=== PATIENT | female | born 1945 | race Caucasian/White ===

== ENCOUNTER → 2016-09-03 | Outpatient (CLI) | payer OTHER ==
--- NOTE | 2016-09-03 10:53 | DX ---
Chest, Two Views September 03, 2016 1017 hours History: Hyponatremia. Comparison: December 2012. Findings: Cardiac silhouette is within normal range. No pneumonia, congestive heart failure, pleura l effusion, or pneumothorax. Large retrocardiac hiatal hernia with air-fluid level with the hernia me asuring at least 12 cm. Atherosclerotic thoracic aorta. Impression: 1. Large hiatal hernia. 2. No acute pneumonia.
== END ==
LOC: CIMAGING 10:06
PROVIDERS: ATTEND Internal Medicine Nephrology
DX: E87.1 Hypo-osmolality and hyponatremia (principal); K44.9 Diaphragmatic hernia without obstruction or gangrene
CPT/HCPCS: 71020-PO

== ENCOUNTER → 2016-09-11 | Outpatient (CLI) | payer OTHER ==
--- NOTE | 2016-09-11 18:26 | DX ---
Cervical Spine, Two Views History: Preoperative cervical fusion evaluation, cervical spinal stenosis Comparison: CT myelogram July 24, 2016 Findings: Alignment is stable and straight with slight retrolisthesis at C4-5 , slight spondylolisthe sis at C6-C7 and mild spondylolisthesis at C7-T1 . Severe disc space narrowing between C4 and C7 is s table. Ventral and dorsal osteophytes remain at the narrowed levels. There are no compression abnorma lities. There is no prevertebral soft tissue swelling. There is right carotid bifurcation vascular ca lcification. There is degenerative facet disease on the left between C3 and C6. Impression: Stable multilevel spondylosis x 2 months.
== END ==
LOC: EDSTATUS 09:55 → FIMAGING 09:55
PROVIDERS: ATTEND Orthopaedic Surgery Orthopaedic Surgery of the Spine
DX: Z01.818 Encounter for other preprocedural examination (principal); M43.02 Spondylolysis, cervical region

== ENCOUNTER 2016-09-18 05:38 | Observation (INO) | payer OTHER ==
--- NOTE | 2016-09-17 21:56 | GHP ---
[f rep st] PREOP HISTORY AND PHYSICAL DATE OF ADMISSION: 09/18/2016 HISTORY: The patient is a pleasant 71-year-old, right-hand dominant woman referred to me for a 6-mon th history of sudden onset right shoulder and right upper extremity pain. The patient also has tingl ing and numbness down her right arm into the right index and long finger. Eighty percent of her symp toms are referable to the right upper extremity and 20% are referable to the neck pain. Symptoms are worse with ambulation and worse with use of her right upper extremity. On a 1-10 scale, her daily p ain as an 8. She denies any loss of bowel or bladder control. No loss of balance. Treatments have included physical therapy, home stretching exercise and antiinflammatories. SOCIAL HISTORY: The patient is retired. She is a past smoker but quit at the age of 27. She denies use of alcohol. FAMILY HISTORY: Diabetes mellitus, cancer and heart disease. PAST MEDICAL HISTORY: Type 2 diabetes mellitus, hypothyroidism, hypertension, and gastroesophageal r eflux disease. PAST SURGICAL HISTORY: Appendectomy, tonsillectomy, adenoidectomy, breast reduction surgery, catarac t surgery, right shoulder surgery, L3-4 laminectomy, L4-5 and L5-S1 fusion and a right stapedectomy. ALLERGIES: None. MEDICATIONS: Metformin, omeprazole, valsartan, levothyroxine and spironolactone. PHYSICAL EXAMINATION: VITAL SIGNS: Blood pressure is 118/74. CARDIAC: Regular rate and rhythm wit hout detectable murmur, rub or gallop. LUNGS: Clear to auscultation. ABDOMEN: Benign. NEUROLOGIC AL: Decreased cervical range of motion in left rotation and in extension. Strength in bilateral upp er extremities is 5/5 throughout with the exception of the right deltoid that is 4/5. Light touch is subjectively decreased in the left thumb, index and long finger. Biceps, brachia radialis, triceps reflexes are 1/4. Cervical spine is tender to palpation posteriorly at about 7. She is also tender along the medial inferior border of the right scapula. Spurling test is positive on the right. Fouzia carrillo test is positive on the left. Toes are downgoing on Babinski exam. Gait is normal. RADIOGRAPHIC STUDIES: CT myelogram of the cervical spine show severe qpgd-tf-rtlo degenerative disk disease C4-5, C5-6, C6-7. She has severe stenosis at C5-6 with spinal cord compression and severe st enosis at C6-7. IMPRESSION: 1. Cervical myelopathy. 2. Severe degenerative disk disease C4-7. 3. Severe stenosis C5-6 and C6-7 with spinal cord compression. 4. Right C5 radiculopathy with motor weakness. Due to the severity of the stenosis and cause of spinal cord compression with myelopathy, I have idalmis mmended surgery. This will be in the form of a C4-C7 anterior diskectomy, fusion with instrumentatio n. Potential risks, benefits, possible complications been thoroughly discussed including, but not li mited to, dural tear with CSF leak, meningitis, nerve root injury, partial or complete paralysis, inf ection, need for further surgery, Garo syndrome, dysphagia, aphonia, nonunion, and lack of improvem ent of symptomatology. She is also at risk of deep venous thrombosis, pulmonary embolism, pneumonia, stroke, heart attack, hemorrhage, blindness, and . The patient's questions have been answered thoroughly. She will be n.p.o. after midnight the night prior to surgery which is tonight. Copy requested to: [facility] /[id number]/MODL
[2016-09-18] MEDS ORDERED: ceFAZolin 2 GM/DEXTROSE 100 ML IV ONE (06:00)
[2016-09-18] MEDS ORDERED: THROMBIN (RECOMBINANT) 20,000 UNIT VIAL TP ONE (06:51)
[2016-09-18] MEDS ORDERED: BACITRACIN 50,000 UNITS/10 ML SYR IRR ONE (06:51)
[2016-09-18] MEDS ORDERED: AVITENE POWDER 1 GM JAR TP ONE (06:51)
[2016-09-18] MEDS ORDERED: fentaNYL 100 MCG/2 ML INJ ONE ×2 (07:04→11:59)
[2016-09-18] MEDS ORDERED: REMIFENTANIL HCL 1 MG VIAL ONE ×3 (07:04)
[2016-09-18] MEDS ORDERED: SUCCINYLCHOLINE CHLORIDE*ANESTHESIA ONLY*200 MG/10 ML SYR IVP ONE (07:05)
[2016-09-18] MEDS ORDERED: ROCURONIUM 50 MG/5 ML VIAL ONE (07:05)
[2016-09-18] MEDS ORDERED: PROPOFOL 200 MG/20 ML VIAL ONE (07:05)
[2016-09-18] MEDS ORDERED: PROPOFOL/EMULSION 500 MG/50 ML BOTTLE IV ONE ×2 (07:05→08:58)
[2016-09-18] MEDS ORDERED: diphenhydrAMINE 25 MG CAP PO PRN (07:31)
[2016-09-18] MEDS ORDERED: MAGNESIUM HYDROXIDE 30 ML UDCUP PO PRN (07:31)
[2016-09-18] MEDS ORDERED: OXYCODONE/APAP 5/325 TAB PO PRN (07:31)
[2016-09-18] MEDS ORDERED: PROCHLORPERAZINE MALEATE 10 MG TAB PO PRN (07:31)
[2016-09-18] MEDS ORDERED: ONDANSETRON DISINTEGRATING 4 MG TAB PO PRN (07:31)
[2016-09-18] MEDS ORDERED: HYDROmorphONE/DILAUDID 1 MG/ML SYR IVP PRN (07:31)
[2016-09-18] MEDS ORDERED: LACTULOSE 20 GM/30 ML UDCUP PO PRN (07:31)
[2016-09-18] MEDS ORDERED: POLYETHYLENE GLYCOL 3350 17 GM PKT PO PRN (07:31)
[2016-09-18] MEDS ORDERED: DIAZEPAM 10 MG/2 ML SYR IVP PRN (07:31)
[2016-09-18] MEDS ORDERED: BISACODYL 10 MG SUPP PR PRN (07:31)
[2016-09-18] MEDS ORDERED: HYDROCODONE/APAP 10/325 TAB PO PRN (07:31)
[2016-09-18] MEDS ORDERED: METHOCARBAMOL 750 MG TAB PO PRN (07:31)
[2016-09-18] MEDS ORDERED: D5W 1/2 NS W/ 20 KCl/L 1,000 ML IV SCH (07:45)
[2016-09-18] MEDS ORDERED: NON-FORMULARY NEW DRUG (Metformin Hcl [Metformin Hcl Er] 500 MG) PO SCH (08:00)
[2016-09-18] MEDS ORDERED: HYDROmorphONE/DILAUDID 2 MG/ML SYR ONE (08:10)
[2016-09-18] MEDS ORDERED: LR 1,000 ML IV ONE (08:37)
[2016-09-18] MEDS ORDERED: LIDOCAINE 1% 5 ML SDV ID PRN (08:37)
[2016-09-18] MEDS ORDERED: PHENYLEPHRINE 10 MG/ML SDV ONE ×2 (08:37→10:30)
[2016-09-18] MEDS ORDERED: PHENYLEPHRINE HCL 100 MCG/ML SYR ONE (08:39)
[2016-09-18] MEDS ORDERED: NON-FORMULARY NEW DRUG (Omeprazole [Prilosec 20 Mg] 20 MG) PO SCH (09:00)
[2016-09-18] MEDS ORDERED: SUGAMMADEX SODIUM 200 MG/2 ML VIAL IVP ONE (10:36)
--- NOTE | 2016-09-18 11:04 | POSTOPPROG ---
Post Op Note Date of Operation: 09/18/16 Surgeon: Yajaira Rivas Acupuncture Physician: Paz Ramirez SA Anesthesiologist: Brie Adkins Anesthesia: GET(General Endotracheal) Pre-op Diagnosis: C4-7 severe DDD, stenosis, R C5 radic., myelopathy Post-op Diagnosis: same Indication: RUE pain, neck pain, weakness RUE Procedure: C4-7 ACDF/I Findings: severe bone on bone DDD, stenosis Inf/Abcess present in the surg proc area at time of surgery?: No Depth: Deep Incisional (Fascial) EBL: 75 cc Complications: None. No changes in neuromonitoring.
[2016-09-18] MEDS: PANTOPRAZOLE SODIUM 40 MG TAB PO SCH ×2 (13:38→19:45)
[2016-09-18] MEDS: VALSARTAN 160 MG TAB PO SCH (13:38)
[2016-09-18] MEDS: GABAPENTIN 100 MG CAP PO SCH ×3 (13:38→21:56)
[2016-09-18] MEDS: SPIRONOLACTONE 25 MG TAB PO SCH (13:38)
[2016-09-18] MEDS: SENNOSIDES/DOCUSATE SODIUM TAB PO SCH ×2 (13:38→19:44)
--- NOTE | 2016-09-18 14:38 | GOP ---
[f rep st] OPERATIVE REPORT DATE OF OPERATION: 09/18/2016 SURGEON: Yajaira Weaver MD FUEL ASSEMBLER: Arpan Ramirez SA ANESTHESIA: General endotracheal intubation. ANESTHESIOLOGIST: Dr. Yvon Dill PREOPERATIVE DIAGNOSIS: 1. Severe degenerative disk disease C4-C7. 2. Severe stenosis C5-C7. 3. Right C5 radiculopathy with motor weakness. 4. Mild cervical myelopathy. POSTOPERATIVE DIAGNOSIS: 1. Severe degenerative disk disease C4-C7. 2. Severe stenosis C5-C7. 3. Right C5 radiculopathy with motor weakness. 4. Mild cervical myelopathy. PROCEDURE PERFORMED: C4-5, C5-6, C6-7 anterior diskectomy, decompression foraminotomies, anterior in terbody arthrodesis and instrumentation. FINDINGS: ESTIMATED BLOOD LOSS: 50 cc. INDICATIONS: Jennifer is a pleasant 71-year-old right-hand dominant woman, referred to me for a 6-month history of right upper extremity pain, tingling, and numbness after carrying something heavy. She al so has neck pain. On a 1 to 10 scale, her daily pain is an 8. She has tried physical therapy, antii nflammatories, and a home stretching exercise regimen. On CT myelogram, she was found have severe de generative disk disease with ocrp-ei-rivn contact at C4-5, C5-6, and C6-7, and severe stenosis at C5- 6 centrally. She also has foraminal stenosis bilaterally at all 3 levels. Patient has elected to un dergo surgery. No guarantees were given in regard to surgical outcome. Potential risks, benefits, p ossible complications have been thoroughly discussed including, but not limited to, dural tear with C SF leak, meningitis, nerve root injury, partial or complete paralysis, Garo syndrome, dysphagia, as well as DVT, PE, pneumonia, stroke, heart attack, hemorrhage, blindness, and . DESCRIPTION OF PROCEDURE: After obtaining both written and verbal consent from the patient, she was brought to the operating room, where she underwent a general endotracheal intubation. Patient receiv ed IV antibiotics in the form of Ancef. Friedman catheter was placed. Neuromonitoring, including somat osensory-evoked potentials, motor-evoked potentials, and EMGs were set up and performed. Baseline po tentials were read as normal. Patient was positioned with her head and neck on a Narvaez headrest i n mild extension. A lateral fluoroscopic x-ray was obtained for localization. The anterior aspect o f the cervical spine was prepped and draped in the normal sterile fashion. A timeout was performed w ith the entire operating room team confirming patient's name, date of , planned surgical procedu re including levels, antibiotics given, allergies to medications. A left-sided paramedian longitudinal incision was made through skin along the medial border of the st ernocleidomastoid muscle. The incision was then brought down through the deep cervical fascia. The t rachea and the esophagus were gently retracted towards the midline. The omohyoid muscle was incised using a Bovie cautery for increased visualization. The pretracheal and prevertebral fascia were sahil ntly dissected. Three bent spinal needles were placed at disk spaces based on the anatomic landmarks and a lateral x- ray of the cervical spine showed that these 3 markers were indeed at the C4-5, C5-6, and C6-7 levels, which were the planned surgical levels. These were all removed, and the operating microscope was br ought in for further visualization. The longus coli muscles were elevated with Bovie cautery. The anterior longitudinal ligament was portillo en down also with Bovie cautery from C4-C7. Very large anterior osteophytes were identified at all 3 levels. These were shaved down with a 5 mm round bur. Brookline retractors were placed and Brookline pin s were placed as well starting at C4-5. There were no changes in spinal cord monitoring. Very minim al distraction was performed at the C4-5 disk space. There was ossification of the anterior longitud inal ligament that was removed with a pituitary only, and then a 15 blade knife was used to create an annulotomy at the C4-5 disk space. This disk was completely collapsed and there was aeag-pc-abus co ntact. A 5 mm round bur was then used to open up the disk space and to decorticate the vertebral endplates a ll the way back to the posterior longitudinal ligament. This was hypertrophied causing mild stenosis centrally. Severe bilateral foraminal stenosis was identified at C4-5 and decompressed with a 2 mm Kerrison. Care was taken to protect the spinal cord and the dura at all times, and the central canal was decompressed by removing the posterior longitudinal ligament. A 5 mm barrel shaped bur was then used to create parallel endplates at the disk space. Trials were t hen utilized using the [employer] Sapphire system and Crystal PEEK system. A size 9 mm lordotic spacer had the best fit and therefore, a Crystal Ti-Sunshine PEEK cage measuring 9 mm, which was lordose d, was packed with local autogenous saved bone graft mixed with demineralized bone matrix. It was ta mped into position and recessed about 1 mm. A micro nerve hook was used to palpate posterior to the bone graft and this ensured that there was no compressive pathology on the spinal cord. Then, the Brookline pin was changed down to the C5-6 level. There was again, a very large anterior oste ophyte, taken down with a 5 mm round bur. The disk was completely obliterated and patient had bone-o n-bone contact throughout the entire aspect of where the disk was. It was opened up with a 5 mm roun d bur. At this level, the posterior longitudinal ligament was significantly hypertrophied causing mo derate to severe stenosis centrally and severe foraminal stenosis. Central and foraminal areas were opened up with a 2 mm Kerrison. Care was taken to protect the spinal cord and the dura at all times. A 5 mm barrel shaped bur was then used to create parallel endplates and trials were utilized. Agai n, a 9 mm lordotic trial had the best fit. Therefore, a second Ti-Sunshine Crystal PEEK cage was prepare d using autogenous bone graft and demineralized bone matrix. It was then tamped into position and re cessed about 1 mm. A micro nerve hook was used to palpate posterior to the bone graft and this showe d no iatrogenic compression of the spinal cord. There were no changes in spinal cord monitoring. Then, the C6-7 level was addressed and again, this level showed a very large anterior osteophyte, portillo en down with a 5 mm round bur and again, the disk was completely disintegrated down to gnin-dp-ixph c ontact. The disk space was opened up with a 5 mm round bur back to the uncovertebral joints. This l evel was essentially auto-fused and therefore, the posterior longitudinal ligament was not taken down at this level. Trials were utilized and a 10 mm trial was the best fit. Therefore, a 16 x 13 x 10 mm lordotic Ti-Sunshine Crystal PEEK cage was packed with local autogenous bone graft and demineralized b one matrix. This was tamped into position. There were no changes in spinal cord monitoring. Then, at this time a 5 mm round bur was used to contour the anterior aspect of the cervical spine fro m C4-C7 to better accept a plate. A Sapphire plate from [employer] was chosen and this was 54 m m in length, and it was contoured into lordosis. It was placed under direct visualization using a dr ill bit and self-drilling screws. All screws were 4 mm in diameter and 12 mm in length with the exce ption of the C7 screws that were 14 mm in length for better purchase. All had good purchase. The in terlocking screw was then tightened with a torque wrench. An AP and a lateral fluoroscopic x-ray wer e obtained showing good position of internal fixation and the PEEK cages from C4-C7. Irrigation was performed. Hemostasis was meticulously obtained. This was done with thrombin-soaked Gelfoam and bipolar cautery. The wound was completely dry prior to closure and therefore, a drain wa s not necessary. The wound was closed using a 2-0 undyed Vicryl in an interrupted fashion in the robinson tysma, followed by a 4-0 Prolene in the skin. Steri-Strips were applied. Sterile dressing was place d. Soft cervical collar was placed. Friedman catheter was removed. Patient was extubated in the operating room, brought to the recovery room in satisfactory condition. IMPLANTS: [employer] Sapphire plate and Ti-Sunshine Crystal PEEK cages x3. POSTOPERATIVE PLAN: Close neurologic observation, close airway observation, PT, OT, and speech thera py. /[id number]/MODL
[2016-09-18] MEDS ORDERED: D50W 25 GM/50 ML SYR IVP PRN (14:45)
[2016-09-18] MEDS: DIAZEPAM 5 MG TAB PO PRN ×2 (15:26→21:56)
[2016-09-18] MEDS: ONDANSETRON 4 MG/2 ML VIAL IVP PRN ×2 (17:33→21:58)
[2016-09-18] MEDS: metFORMIN SR 500 MG TAB PO SCH ×4 (18:23→18:26)
--- NOTE | 2016-09-18 18:47 | DX ---
Fluoroscopy with 11 cervical spine Images at 0747 hours History: Cervical fusion from C4 through C7. Fluoroscopy time: 14.2 seconds utilized intraoperatively by Dr. Skip Fitzgerald. Dose 1.37 mGy. Technique: 11 cervical spine intraoperative images have just been presented for interpretation. Findings: Images demonstrate anterior probes in the lower cervical region with later images demonstra ting anterior cervical fusion plate and screws at C4, C5, C6, and C7 levels partially visualized. IMPRESSION: Anterior cervical diskectomy and fusion from C4 through C7 with fluoroscopic time of 14.2 seconds .
[2016-09-19] MEDS ORDERED: LEVOTHYROXINE 88 MCG TAB PO SCH (06:00)
[2016-09-19 07:26] VITALS: RESP 16
[2016-09-19] MEDS: PANTOPRAZOLE SODIUM 40 MG TAB PO SCH (07:53)
[2016-09-19] MEDS: ACETAMINOPHEN 325 MG TAB PO PRN ×2 (07:53→12:48)
[2016-09-19] MEDS: DIAZEPAM 5 MG TAB PO PRN ×2 (07:53→17:14)
[2016-09-19] MEDS: GABAPENTIN 100 MG CAP PO SCH ×2 (07:59→15:57)
[2016-09-19] MEDS: SENNOSIDES/DOCUSATE SODIUM TAB PO SCH (07:59)
[2016-09-19] MEDS: VALSARTAN 160 MG TAB PO SCH (07:59)
[2016-09-19] MEDS: SPIRONOLACTONE 25 MG TAB PO SCH (07:59)
[2016-09-19] MEDS: metFORMIN SR 500 MG TAB PO SCH (08:02)
[2016-09-19 12:16] VITALS: TEMP 98
[2016-09-19 16:37] VITALS: BP 112/81; PULSE 85; O2SAT 93
--- NOTE | 2016-09-19 16:49 | SOAPPROG ---
SOAP Progress Note Assessment/Plan: Assessment: post op day 1, s/p C4-7 ACDF/I. Pt doing very well. Ready for discharge. Plan: d/c to home 09/19/16 16:47 Subjective: Pt states she is not in much pain; only stiffness. Dysphagia is already improving. Objective: Vital Signs Temp Pulse Resp BP Pulse Ox 36.7 C 85 16 112/81 H 93 09/19/16 12:00 09/19/16 16:00 09/19/16 16:00 09/19/16 16:00 09/19/16 16:00 09/18/16 09/19/16 09/20/16 05:59 05:59 05:59 Intake Total 4015 Output Total 1125 Balance 2890 BUE motor 5/5. NVI. Numbness is gone. C spine wound clean and dry. No Garo's syndrome. No sign of hematoma ICD10 Worksheet Patient Problems: Problems Problem Status Diagnosed Diabetes mellitus Acute
[2016-09-19] MEDS ORDERED: metFORMIN SR 500 MG TAB PO SCH (18:00)
== END 2016-09-19 17:35 | disposition home or self-care (01) ==
LOC: INTOOBSV 05:38 → F3N 05:38
PROVIDERS: ADMIT Orthopaedic Surgery Orthopaedic Surgery of the Spine; ATTEND Orthopaedic Surgery Orthopaedic Surgery of the Spine
PROC: 0RG20A0 Fusion of 2 or more Cervical Vertebral Joints with Interbody Fusion Device, Anterior Approach, Anterior Column, Open Approach (ICD-10-PCS; principal; 2016-09-18 07:15)
PROC: B01B1ZZ Fluoroscopy of Spinal Cord using Low Osmolar Contrast (ICD-10-PCS; principal; 2016-09-18 07:15)
DX: M50.021 Cervical disc disorder at C4-C5 level with myelopathy (principal); M50.022 Cervical disc disorder at C5-C6 level with myelopathy; M50.023 Cervical disc disorder at C6-C7 level with myelopathy; M48.02 Spinal stenosis, cervical region; E87.1 Hypo-osmolality and hyponatremia; I10 Essential (primary) hypertension; E11.9 Type 2 diabetes mellitus without complications; I25.10 Atherosclerotic heart disease of native coronary artery without angina pectoris; E03.9 Hypothyroidism, unspecified; I77.810 Thoracic aortic ectasia; Z86.010 Personal history of colon polyps; K21.9 Gastro-esophageal reflux disease without esophagitis
CPT/HCPCS: 22551; 22552; 76001; 92526; 92610; 97161; 97165; C1713; G8978; G8979; G8980; G8987; G8988; G8989; G8996; G8997; J0330; J0690; J1170; J2370; J2405; J2704; J3010

== ENCOUNTER 2016-10-08 14:50 | Emergency (ER) | payer OTHER ==
[2016-10-08 16:00] VITALS: BP 118/95; PULSE 71; RESP 18; TEMP 97.5; O2SAT 97
--- NOTE | 2016-10-08 16:37 | DX ---
Right ankle, three views. History: injury with pain Findings: A small chip avulsion is present arising from the undersurface of the lateral malleolus, w ith lateral soft tissue swelling. Ankle mortise is intact. No joint effusion. Moderate size plantar calcaneal spur incidentally noted. Degenerative changes are present at the kadeem culation of the navicular with the cuneiforms. Impression: Small chip avulsion from the undersurface of the lateral malleolus, with lateral soft tis hodan swelling.
--- NOTE | 2016-10-08 16:50 | UCPHY ---
H & P Patient Type: Established Smoking Status: Former smoker Time Seen by Provider: 10/08/16 16:49 HPI/ROS: CHIEF COMPLAINT: Ankle pain HISTORY OF PRESENT ILLNESS: 71-year-old female in the urgent care via private vehicle complaining of acute right lateral ankle pain when she was getting up from her recliner today she rolled her foot. She is able to bear partial weight albeit with pain. No proximal distal pain or injury. No head injury. PHYSICAL EXAM (Prior to examination, patient consented to physical exam, hands were washed and my usual and customary physical exam procedures followed) 1) GENERAL: Well-developed, well-nourished, alert and oriented. Appears to be in no acute distress. 2) HEAD: Normocephalic 3) HEENT: Pupils equal, round, reactive to light bilaterally. 4) LUNGS: Breathing comfortably. 5) MUSCULOSKELETAL: Soft tissue swelling and tenderness over the lateral malleolus of the right ankle. proximal tibia and fibula nontender .5th MT nontender negative Garcia test, compartments soft 6) SKIN: intact no discoloration no ecchymosis 7) VASCULAR: DP,PT pulses and cap refill present and brisk DIFFERENTIAL DIAGNOSIS: in no particular order including but not limited to fracture, sprain, compartment syndrome Right ankle, three views. History: injury with pain Findings: A small chip avulsion is present arising from the undersurface of the lateral malleolus , with lateral soft tissue swelling. Ankle mortise is intact. No joint effusion. Moderate size plantar calcaneal spur incidentally noted. Degenerative changes are present at the articulation of the navicular with the cuneiforms. Impression: Small chip avulsion from the undersurface of the lateral malleolus , with lateral soft tissue swelling. Dictated By: Davis Montesinos MD images reviewed by myself Patient declined crutches Procedure: Splint A [place] boot splint was applied by ER oscillograph technician. After application of the splint I returned and re-examined the patient. The splint was adequately immobilizing the joint and distal to the splint the patient's circulation and sensation were intact. Patient shows no signs of compartment syndrome. Was given orthopedic precautions. (Heather Rojo) Constitutional: Initial Vital Signs Temperature (C) 36.4 C 10/08/16 15:55 Heart Rate 71 10/08/16 15:55 Respiratory Rate 18 10/08/16 15:55 Blood Pressure 118/95 H 10/08/16 15:55 O2 Sat (%) 97 10/08/16 15:55 O2 Delivery Mode Room Air Allergies/Adverse Reactions: Sulfa (Sulfonamide Antibiotics) Allergy (Mild, Verified 10/08/16 15:55) NAUSEA codeine [Codeine] Allergy (Unknown, Verified 10/08/16 15:55) Opioids - Morphine Analogues Allergy (Verified 10/08/16 15:55) Vomiting Opioids Allergy (Uncoded 10/08/16 15:55) Vomiting Home Medications: Medication Instructions Recorded Cholecalciferol Vit D3 [Vitamin D3 2,000 units PO DAILY 08/23/16 2000 units tab (OTC)] Gabapentin [Neurontin 100 MG (*)] 100 mg PO TID 08/23/16 Levothyroxine [Synthroid 88 mcg 88 mcg PO DAILY06 08/23/16 (*)] Metformin HCl [Metformin HCl ER] 1,000 mg PO DAILY@18 08/23/16 Omeprazole [Prilosec 20 mg] 20 mg PO DAILY 08/23/16 Spironolactone [Aldactone 25 MG 50 mg PO DAILY 08/23/16 (*)] Valsartan [Diovan (*)] 320 mg PO DAILY 08/23/16 Acetaminophen [Tylenol 325mg (*)] 325 - 650 mg PO Q4HRS PRN #0 tab 09/19/16 Diazepam [Valium 5 MG (*)] 5 mg PO Q8 PRN #30 tab 09/19/16 Gabapentin [Neurontin 100 MG (*)] 100 mg PO TID #0 cap 09/19/16 Levothyroxine [Synthroid 88 mcg 88 mcg PO DAILY06 #0 tab 09/19/16 (*)] Pantoprazole Sodium [Protonix 40mg 40 mg PO DAILY #0 tab 09/19/16 (*)] Spironolactone [Aldactone 25 MG 50 mg PO DAILY #0 tab 09/19/16 (*)] Valsartan [Diovan (*)] 320 mg PO DAILY #0 tab 09/19/16 metFORMIN SR [Glucophage XR 500 mg 1,000 mg PO DAILY18 #0 tab 09/19/16 (*)] oxyCODONE/APAP 5/325 [Percocet 1 - 2 tab PO Q4HRS PRN #60 tab 09/19/16 5/325 (*)] MDM/Departure - [facility] ED Course/Re-evaluation: The patient was evaluated and managed by the Physician Residential Property Manager, Bonilla Rojo. My co-signature indicates that I have reviewed this chart and I agree with the findings and plan of care as documented. I am the secondary supervising physician. (Laurel Blakely) - Depart Disposition: Home, Routine, Self-Care Clinical Impression: Closed right ankle fracture Qualifiers: Encounter type: initial encounter Qualifier Code: (S82.891A) Other fracture of right lower leg, initial encounter for closed fracture Condition: Good Instructions: Ankle Fracture (ED) Additional Instructions: Return to the ER immediately if you experience discoloration, have worsening pain, numbness, tingling, or any other symptoms that concern you. If you received x-rays in the emergency department today, be advised, that ligamentous , tendon, muscular, and other non-bony injury cannot be fully ruled out. Try to keep your affected extremity elevated above the level of your chest, and keep cold packs on the affected area, for the next 48 hours. Referrals: Alex Ramey MD [Medical Doctor] - 5-7 days, call for appt. - PQRS PQRS Measurement: 134: Depression screening and followup, PRIME MD-PHQ2 (12 years and older) Over the last 2 weeks, how often have you been bothered by any of the following problems? 1. Feeling down, depressed, or hopeless? 2. Little interest or pleasure in doing things? Patient answered no to both 1 and 2 130: Documentation of medications. Reviewed all patient medications, doses, route and frequency. 226: Do you smoke? No. 47: 65 and older: Advanced care planning. Patient has advanced directive. 51: 18 years old and older with diagnosis of COPD, spirometry performance. [Patient has no history of COPD 52: 18 years old and older with COPD and symptoms of COPD or FEV1<60% predicted prescribed a B Agonist. No COPD history (Heather Rojo)
== END 2016-10-08 17:02 | disposition home or self-care (01) ==
LOC: CED 14:50
PROC: 2W3SXYZ Immobilization of Right Foot using Other Device (ICD-10-PCS; principal; 2016-10-08)
DX: S82.61XA Displaced fracture of lateral malleolus of right fibula, initial encounter for closed fracture (principal); X58.XXXA Exposure to other specified factors, initial encounter
CPT/HCPCS: 73610-PO; 99214-PO

== ENCOUNTER → 2016-10-19 | Outpatient (CLI) | payer OTHER | LOC: FIMAGING 10:47 | PROVIDERS: ATTEND Orthopaedic Surgery Orthopaedic Surgery of the Spine | DX: M96.1 Postlaminectomy syndrome, not elsewhere classified (principal); Z98.1 Arthrodesis status; M43.12 Spondylolisthesis, cervical region ==

== ENCOUNTER → 2016-12-26 | Outpatient (CLI) | payer OTHER | LOC: FIMAGING 10:41 | PROVIDERS: ATTEND Orthopaedic Surgery Orthopaedic Surgery of the Spine | DX: M96.1 Postlaminectomy syndrome, not elsewhere classified (principal); M43.13 Spondylolisthesis, cervicothoracic region ==

== ENCOUNTER → 2017-04-04 | Outpatient (CLI) | payer OTHER | LOC: CIMAGING 11:01 | PROVIDERS: ATTEND Orthopaedic Surgery Orthopaedic Surgery of the Spine | DX: M96.1 Postlaminectomy syndrome, not elsewhere classified (principal); Z98.1 Arthrodesis status | CPT/HCPCS: 72040-PO ==

== ENCOUNTER → 2017-07-24 | Outpatient (CLI) | payer OTHER | LOC: BRMIMAGING 13:58 | PROVIDERS: ATTEND Internal Medicine | DX: Z13.820 Encounter for screening for osteoporosis (principal); M85.80 Other specified disorders of bone density and structure, unspecified site ==

== ENCOUNTER → 2017-07-25 | Outpatient (CLI) | payer OTHER | LOC: CIMAGING 10:35 | PROVIDERS: ATTEND Internal Medicine | DX: Z12.31 Encounter for screening mammogram for malignant neoplasm of breast (principal) | CPT/HCPCS: G0202 ==

== ENCOUNTER → 2018-12-01 | Outpatient (CLI) | payer OTHER | LOC: BHFA 14:45 | PROVIDERS: ATTEND Internal Medicine Cardiovascular Disease | DX: I25.10 Atherosclerotic heart disease of native coronary artery without angina pectoris (principal) ==

== ENCOUNTER → 2018-12-29 | Outpatient (CLI) | payer OTHER | LOC: BHFA 09:30 | PROVIDERS: ATTEND Internal Medicine Cardiovascular Disease | DX: I25.10 Atherosclerotic heart disease of native coronary artery without angina pectoris (principal) | CPT/HCPCS: 78452; 93017; A9500 ==